=== PATIENT | female | born 1980 | race Caucasian/White ===

== ENCOUNTER → 2017-02-18 | Outpatient (CLI) | payer BC | END | disposition home or self-care (01) | LOC: GMAJ 17:05 | PROVIDERS: ATTEND Family Medicine | DX: D51.1 Vitamin B12 deficiency anemia due to selective vitamin B12 malabsorption with proteinuria (principal); Z79.899 Other long term (current) drug therapy ==

== ENCOUNTER 2017-03-10 05:48 | Day surgery (SDC) | payer BC ==
[2017-03-10] MEDS ORDERED: LACTATED RINGERS 1,000 ML ONE (06:13)
--- NOTE | 2017-03-10 09:30 | OP ---
DATE OF PROCEDURE: 03/10/17 PREPROCEDURE DIAGNOSIS: 1. Rectal bleeding, source undetermined. 2. Slightly irregular bowel habits. POSTPROCEDURE DIAGNOSIS: 1. Small internal hemorrhoids. 2. Minimal diverticular disease. 3. No definite bleeding source identified. PROCEDURE: 1. Colonoscopy to the terminal ileum. SURGEON: Jhon Tucker MD. ANESTHESIA: Monitored anesthesia care. FINDINGS: With the patient under adequate sedation, digital exam showed normal anal canal with no rectal masses. Colon preparation was adequate. The colon can be examined to good advantage. U-turn of the scope in the rectum showed small internal hemorrhoids, no sign of bleeding. No evidence of inflammatory bowel disease. Mucosa normal. A few diverticulosis present in the sigmoid and descending colon. They are small, far and few in between. The descending colon , sigmoid colon, transverse colon, ascending colon, and cecum are all normal. No evidence of inflammatory bowel disease. Both flexures were carefully examined. Appendix opening identified, ileocecal valve identified. Terminal ileum was intubated and appears normal. The entire scope withdrawal showed no new additional abnormality. FINAL IMPRESSION: 1. Small internal hemorrhoids. 2. No sign of hemorrhage. 3. No inflammatory bowel disease. 4. Minimal diverticulosis. 5. There is no explanation on the colonoscopy such as any reason for iron deficiency anemia. I cannot identify any source for bleeding in the perineum except for hemorrhoids. #[id number] cc: MD Jhon Bennett MD MTDD
[2017-03-10 10:03] VITALS: BP 125/86; TEMP 97; O2SAT 98
[2017-03-10] MEDS ORDERED: PROPOFOL 200 MG/20 ML VIAL IV ONE (12:00)
== END 2017-03-10 09:50 ==
LOC: AMB 05:48
PROVIDERS: ATTEND Internal Medicine Gastroenterology
DX: K62.5 Hemorrhage of anus and rectum (principal); D50.9 Iron deficiency anemia, unspecified; K57.30 Diverticulosis of large intestine without perforation or abscess without bleeding; K64.8 Other hemorrhoids; R19.4 Change in bowel habit; E11.9 Type 2 diabetes mellitus without complications; E66.9 Obesity, unspecified; Z68.36 Body mass index [BMI] 36.0-36.9, adult; Z88.0 Allergy status to penicillin; Z88.8 Allergy status to other drugs, medicaments and biological substances; Z80.0 Family history of malignant neoplasm of digestive organs; Z79.82 Long term (current) use of aspirin; Z79.84 Long term (current) use of oral hypoglycemic drugs; Z79.899 Other long term (current) drug therapy

== ENCOUNTER → 2017-05-24 | Outpatient (CLI) | payer BC | END | disposition home or self-care (01) | LOC: GMAJ 12:10 | PROVIDERS: ATTEND Family Medicine | DX: Z79.899 Other long term (current) drug therapy (principal); D50.1 Sideropenic dysphagia; D50.8 Other iron deficiency anemias ==

== ENCOUNTER → 2017-06-18 | Outpatient (CLI) | payer BC | END | disposition home or self-care (01) | LOC: GMA 12:52 | PROVIDERS: ATTEND Physician Assistant | DX: N30.00 Acute cystitis without hematuria (principal) ==

== ENCOUNTER → 2017-12-08 | Outpatient (CLI) | payer BC | LOC: GMAJ 15:19 | PROVIDERS: ATTEND Family Medicine | DX: I80.222 Phlebitis and thrombophlebitis of left popliteal vein (principal) ==

== ENCOUNTER → 2017-12-09 | Outpatient (CLI) | payer BC | LOC: GMAJ 11:24 | PROVIDERS: ATTEND Family Medicine | DX: I80.222 Phlebitis and thrombophlebitis of left popliteal vein (principal) ==

== ENCOUNTER → 2017-12-13 | Outpatient (CLI) | payer BC ==
--- NOTE | 2017-12-13 16:46 | US ---
EXAM DESCRIPTION: Venous,Lower Extremity LT CLINICAL HISTORY: PAIN, SWELLING, H/O LT DVT COMPARISON: 07 August 2016 TECHNIQUE: Left lower extremity venous duplex FINDINGS: There is no DVT identified. There is normal color flow observed with good flow augmentation. All deep veins compress normally. 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
== END ==
LOC: US 15:57
PROVIDERS: ATTEND Internal Medicine Hematology & Oncology
DX: M79.605 Pain in left leg (principal); R60.9 Edema, unspecified; Z86.718 Personal history of other venous thrombosis and embolism

== ENCOUNTER → 2018-03-07 | Outpatient (CLI) | payer BC ==
--- NOTE | 2018-03-07 11:59 | US ---
Study: Left lower extremity venous Doppler sonogram. Indication: DVT Technical: Multiplanar grayscale and Doppler sonographic images of the deep veins of the left lower extremity obtained. Findings: There is no sonographic evidence of deep venous thrombosis. The deep veins of the left lower extremity compress normally and have appropriate duplex waveforms. Normal flow augmentation is noted as well. Conclusion: 1. No sonographic evidence of deep venous thrombosis of the left lower extremity. Electronically signed by: Angel Mars MD 03/07/2018 11:58 AM CDT
== END ==
LOC: US 08:46
PROVIDERS: ATTEND Internal Medicine Hematology & Oncology
DX: I82.492 Acute embolism and thrombosis of other specified deep vein of left lower extremity (principal)

== ENCOUNTER → 2018-06-20 | Outpatient (CLI) | payer BC | LOC: GMAJ 18:13 | PROVIDERS: ATTEND Family Medicine | DX: I80.222 Phlebitis and thrombophlebitis of left popliteal vein (principal) ==

== ENCOUNTER → 2019-11-10 | Outpatient (CLI) | payer BC, OTHER | LOC: GMAJ 10:13 | PROVIDERS: ATTEND Family Medicine | DX: E78.00 Pure hypercholesterolemia, unspecified (principal); E11.9 Type 2 diabetes mellitus without complications ==

== ENCOUNTER → 2019-11-23 | Outpatient (CLI) | payer OTHER ==
--- NOTE | 2019-11-24 16:31 | MAM ---
EXAM DESCRIPTION: 3D Screening BILATERAL : Digital Mammography. CLINICAL HISTORY: 39 years Female SCREENING . No complaints. No personal history of breast cancer. Remote family history of breast cancer. Menarche age 14. Childbirth age 23. Menopause age 36. No HRT. Lifetime risk of developing breast cancer (Tyrer-Cuzick model)(%): 10.1. COMPARISON: 2-D digital diagnostic bilateral mammography in bilateral directed breast ultrasound May 2014. No prior reports available. TECHNIQUE: Bilateral CC and MLO projection full-field images, digital tomosynthesis mammographic technique. Bilateral digital 2-D full-field MLO images. CAD available for 2-D images. FINDINGS: The breast parenchymal density pattern is: Almost entirely fatty. No skin thickening or nipple retraction. Solitary microcalcifications. Anterior medial intramammary lymph node, approximately 1 cm, versus mass density. No associated microcalcifications.. No new focal, stellate mass or density, focal asymmetry , and no suspicious microcalcifications right breast IMPRESSION: BI-RADS CATEGORY: 0 - INCOMPLETE- Need additional imaging evaluation. FOLLOW-UP: Recall for additional imaging: Directed breast ultrasound region of interest anterior medial left breast. Written communication concerning the IMPRESSION and Follow-up, will be mailed to the patient and referring health care provider. Electronically signed by: Rene Briscoe MD 11/24/2019 4:30 PM COIL INSPECTOR
== END ==
LOC: MAMMO 12:55
PROVIDERS: ATTEND Family Medicine
DX: Z12.31 Encounter for screening mammogram for malignant neoplasm of breast (principal)

== ENCOUNTER → 2019-12-11 | Outpatient (CLI) | payer OTHER ==
--- NOTE | 2019-12-11 17:19 | US ---
EXAM DESCRIPTION: Breast,Left: Ultrasound CLINICAL HISTORY: 39 yearsFemaleABNL SCREEN focal asymmetry versus mass density left breast. Lifetime risk of developing breast cancer (Tyrer-Cuzick model)(%): 10.1. COMPARISON: Bilateral screening digital breast tomosynthesis 23 November. TECHNIQUE: Transcutaneous scanning of the left breast utilizing castle-scale and Doppler modes. Scanning performed by the plate mill mill hand and Dr. Briscoe. FINDINGS: Ultrasound: Scanning of the anterior left breast from the nipple to 5 cm posteriorly, 9:00 to 11:00 position. Mostly fatty tissues with minimal fibroglandular tissues. No dominant solid mass, no distinct cyst, and no large calcifications. No parenchymal edema. IMPRESSION: Probably benign lymph node by mammography but not visible on ultrasound. BI-RADS CATEGORY: 3 - PROBABLY BENIGN. Management: Short interval (6-month) follow-up diagnostic left breast tomosynthesis with directed left breast ultrasound.. The FINDINGS and the FOLLOW-UP plan were reviewed in person with the patient after the examination. Written communication explaining the IMPRESSION and FOLLOW-UP will be mailed to the patient and referring care provider. Electronically signed by: Rene Briscoe MD 12/11/2019 5:17 PM [facility]
== END ==
LOC: MAMMO 08:00
PROVIDERS: ATTEND Family Medicine
DX: R92.8 Other abnormal and inconclusive findings on diagnostic imaging of breast (principal)

== ENCOUNTER → 2020-08-19 | Outpatient (CLI) | payer OTHER ==
--- NOTE | 2020-08-20 15:38 | US ---
EXAM DESCRIPTION: Pelvic,Non-OB: Ultrasound. CLINICAL HISTORY: 40 years Female HYPERTROPHY OF UTERUS menstrual status unknown. COMPARISON: None TECHNIQUE: Transcutaneous scanning through the urine filled bladder. Trinh-scale and Doppler modes. Technically difficult study due to lack of distention of patient urinary bladder. Also patient large body habitus. Patient refused endovaginal scan. FINDINGS: Uterus 8.0 x 3.4 x 3.8 cm. 53.6 mL. Endometrium 5.3 mm.. Myometrium heterogeneous. Uterus not retroverted. Cervix not well seen. Cul-de-sac: No fluid.. Right ovary 2.5 x 1.3 x 1.3 cm. 2.1 mL. Decreased color Doppler vascularity. No follicles or cysts. No adnexal mass or free fluid. Left ovary not visualized.No adnexal mass or free fluid. IMPRESSION: 1. Limited transpelvic study due to patient large body habitus and lack of distention of the urinary bladder. Patient refused endovaginal scan. 2. Uterus small with normal orientation. Endometrium thickness is abnormal if patient is postmenopausal, but can be related to menstrual cycle. Patient is premenopausal. No fluid. Cervix not well seen. No fluid in the cul-de-sac. 3. Limited visualization of the right ovary with reduced vascularity. No adnexal mass or fluid. Left ovary not seen. Electronically signed by: Rene Briscoe MD 08/20/2020 3:36 PM CDT
== END ==
LOC: US 08:12
PROVIDERS: ATTEND Nurse Practitioner Acute Care
DX: N85.2 Hypertrophy of uterus (principal)